=== PATIENT | female | born 1970 | race Hispanic/Latino ===

== ENCOUNTER 2024-01-01 15:11 | Observation (INO) | payer OTHER ==
[2024-01-01 15:38] LABS: #Monocytes 0.6 thou/uL (0.11-0.59); #Neutrophils 3.4 thou/uL (1.40-6.50); %Basophils 0.5 % (0.0-1.0); %Eosinophils 0.5 % (0.0-10.0); %Lymphocytes 33.1 % (21.0-51.0); %Monocytes 9.1 % (0.0-10.0); %Neutrophils 56.6 % (42.0-75.0); Hemoglobin 14.5 g/dL (12.0-16.0); Mean Corpuscular HGB CONC 34.5 g/dL (32.0-36.0); Mean Corpuscular Hemoglobin 31.5 pg (27.0-31.0); Mean Corpuscular Volume 91.1 fl (78.0-98.0); Mean Platelet Volume 9.7 fL (7.4-10.4); Platelet Count 359 10x3/uL (130-400); Red Blood Cell (RBC) Count 4.61 mill/uL (4.20-5.40)
[2024-01-01 15:53] LABS: ALT (SGPT) 14 U/L (8-55); AST (SGOT) 14 U/L (5-34); Albumin 4.4 g/dL (3.5-5.0); Alkaline Phosphatase 86 U/L (40-110); Anion Gap 13 mmol/L (10-20); BUN (Urea Nitrogen) 5 mg/dL (9.8-20.1); Bilirubin, Total 0.9 mg/dL (0.2-1.2); Calc. Creatinine Clearance 0 mL/min (70-130); Calcium 9.5 mg/dL (7.8-10.44); Carbon Dioxide 21 mmol/L (22-29); Chloride 103 mmol/L (98-107); Estimated GFR 105; Globulin 2.4 g/dL (2.4-3.5); Glucose 109 mg/dL (70-105); Lipase 14 U/L (8-78); Potassium 4.2 mmol/L (3.5-5.1); Protein, Total 6.8 g/dL (6.0-8.3); Sodium 133 mmol/L (136-145)
[2024-01-01 19:03] LABS: Bacteria/HPF None Seen HPF (None Seen); Bilirubin Negative (Negative); Blood, Urine Negative (Negative); CAUTI Indications for Culture Pelvic or flank pain; Clarity Clear (Clear); Glucose, Urine (Dipstick) Normal (Negative); Ketone, Urine Negative (Negative); Leukocyte Negative Leu/uL (Negative); Nitrite Negative (Negative); Protein, Urine (Dipstick) Negative (Neg-Trace); RBC/HPF None Seen HPF (0-3); Specific Gravity, Urine 1.024 (1.002-1.036); Squamous Epithelial 0-3 HPF (0-3); Urobilinogen Normal mg/dL (Less than 2); WBC/HPF 0-3 HPF (0-3); pH, Urine 6.5 (5.0-9.0)
[2024-01-01 19:04] LABS: Urine Culture Reflex No No
[2024-01-01] MEDS ORDERED: Ondansetron PF 4 MG/2 ML Vial IVP PRN (19:43)
[2024-01-01] MEDS ORDERED: Glucagon 1 MG/ML KIT IM PRN (19:44)
[2024-01-01] MEDS ORDERED: HumaLOG 300 UNITS/3 ML VIAL SC PRN (19:44)
[2024-01-01] MEDS ORDERED: Dextrose 5% in Water 1,000 ML IV PRN (19:44)
[2024-01-01 23:14] VITALS: BMI 17.4
[2024-01-02 05:52] LABS: #Basophils 0.1 thou/uL (0.0-0.2); #Eosinphils 0.1 thou/uL (0.0-0.7); #Monocytes 0.8 thou/uL (0.11-0.59); #Neutrophils 3.9 thou/uL (1.40-6.50); %Basophils 0.8 % (0.0-1.0); %Eosinophils 1.4 % (0.0-10.0); %Lymphocytes 26.4 % (21.0-51.0); %Monocytes 11.4 % (0.0-10.0); %Neutrophils 59.8 % (42.0-75.0); Hematocrit 37.4 % (36.0-47.0); Hemoglobin 12.7 g/dL (12.0-16.0); Mean Corpuscular Hemoglobin 30.8 pg (27.0-31.0); Mean Corpuscular Volume 90.8 fl (78.0-98.0); Platelet Count 329 10x3/uL (130-400); RBC Distribution Width 13.1 % (11.5-14.5); Red Blood Cell (RBC) Count 4.12 mill/uL (4.20-5.40); White Blood Cell (WBC) Count 6.6 10x3/uL (4.8-10.8)
[2024-01-02] MEDS: HumaLOG 300 UNITS/3 ML VIAL SC PRN (06:17)
[2024-01-02 06:26] LABS: ALT (SGPT) 10 U/L (8-55); AST (SGOT) 10 U/L (5-34); Albumin 3.7 g/dL (3.5-5.0); Alkaline Phosphatase 77 U/L (40-110); Anion Gap 10 mmol/L (10-20); BUN (Urea Nitrogen) 10 mg/dL (9.8-20.1); Bilirubin, Total 0.6 mg/dL (0.2-1.2); Calc. Creatinine Clearance 68 mL/min (70-130); Calcium 8.8 mg/dL (7.8-10.44); Carbon Dioxide 22 mmol/L (22-29); Chloride 107 mmol/L (98-107); Estimated GFR 92; Globulin 1.9 g/dL (2.4-3.5); Glucose 200 mg/dL (70-105); Potassium 4.1 mmol/L (3.5-5.1); Protein, Total 5.6 g/dL (6.0-8.3); Sodium 135 mmol/L (136-145)
[2024-01-02] MEDS: Dextrose 50% Abboject 50 ML SYRINGE SLOW IVP PRN (07:41)
[2024-01-02 12:35] VITALS: BP 114/65; TEMP 98.3
== END 2024-01-02 16:48 | disposition home or self-care (01) ==
LOC: ERS 15:11 → 2SW 19:45
PROVIDERS: ADMIT Internal Medicine; ATTEND Family Medicine
DX: R10.10 Upper abdominal pain, unspecified (principal); G89.18 Other acute postprocedural pain; R00.1 Bradycardia, unspecified; E13.9 Other specified diabetes mellitus without complications; Z90.49 Acquired absence of other specified parts of digestive tract; Z79.4 Long term (current) use of insulin
CPT/HCPCS: 36415; 36416; 74177; 80053; 81001; 83605; 83690; 85025; 93005; 96360; 96361; G0378; J1815; J7999